=== PATIENT | female | born 1975 ===

== ENCOUNTER 2020-08-19 06:00 | Day surgery (SDC) | payer OTHER ==
[2020-08-19] MEDS ORDERED: COLACE100 MG ×2 (11:18→11:19)
[2020-08-19] MEDS ORDERED: PAXIL (11:19)
[2020-08-19] MEDS ORDERED: PEPCID AC20 MG (11:19)
[2020-08-19] MEDS ORDERED: ACETAMINOPHEN650 M4 (11:19)
== END 2020-08-19 10:45 | disposition home or self-care (01) ==
LOC: AMB-ENDOS 06:00
PROVIDERS: ATTEND Surgery
DX: D12.0 Benign neoplasm of cecum (principal); Z12.11 Encounter for screening for malignant neoplasm of colon; K64.8 Other hemorrhoids

== ENCOUNTER 2020-08-23 05:36 | Day surgery (SDC) | payer OTHER ==
[~2020-08-23 05:36] MED LIST: ACETAMINOPHEN650 M4; COLACE100 MG; PAXIL; PEPCID AC20 MG
== END 2020-08-23 11:50 | disposition home or self-care (01) ==
LOC: CIR.AMB 05:36
PROVIDERS: ATTEND Surgery
DX: C56.2 Malignant neoplasm of left ovary (principal); C56.1 Malignant neoplasm of right ovary; Z20.828 Contact with and (suspected) exposure to other viral communicable diseases
CPT/HCPCS: 36561; C1751

== ENCOUNTER 2020-12-20 12:45 | Inpatient (IN) | payer OTHER ==
[~2020-12-20] VITALS: Ht 177.8 cm; Wt 76.2 kg
[2020-12-20] MEDS ORDERED: ACETAMINOPHEN650 M2 PO (16:52)
[2020-12-23] MEDS ORDERED: DIPHENHYDR50 MG/1 M1 (08:26)
[2020-12-23] MEDS ORDERED: CARBOPLATI10 MG/1 ML (08:26)
[2020-12-23] MEDS ORDERED: DEXAMETHASO4 MG/1 M1 (08:26)
[2020-12-23] MEDS ORDERED: PACLITAXEL6 MG/1 ML (08:27)
[2020-12-23] MEDS ORDERED: ONDANSETRON4 MG/2 M5 (08:27)
[2020-12-23] MEDS ORDERED: PAROXETINE HC12.5 MG (08:27)
== END 2020-12-25 14:23 | disposition home or self-care (01) | DRG 738 ==
LOC: OB/GYN 12-22 06:37 → O/R 12-22 06:37 → SURH 12-22 10:45 → OB/GYN 12-23 01:06
PROVIDERS: ADMIT Specialist; ATTEND Specialist
PROC: 0UT20ZZ Resection of Bilateral Ovaries, Open Approach (ICD-10-PCS; 2020-12-22)
PROC: 0UT70ZZ Resection of Bilateral Fallopian Tubes, Open Approach (ICD-10-PCS; 2020-12-22)
PROC: 07BC0ZX Excision of Pelvis Lymphatic, Open Approach, Diagnostic (ICD-10-PCS; 2020-12-22)
PROC: 0UT90ZL Resection of Uterus, Supracervical, Open Approach (ICD-10-PCS; principal; 2020-12-22 10:45)
DX: C56.1 Malignant neoplasm of right ovary (principal)

== ENCOUNTER 2021-01-14 01:17 | Emergency (ER) | payer OTHER ==
[~2021-01-14] VITALS: Ht 172.7 cm; Wt 52.2 kg
[~2021-01-14 01:17] MED LIST changes: +ACETAMINOPHEN650 M2 PO; +CARBOPLATI10 MG/1 ML; +DEXAMETHASO4 MG/1 M1; +DIPHENHYDR50 MG/1 M1; +ONDANSETRON4 MG/2 M5; +PACLITAXEL6 MG/1 ML; +PAROXETINE HC12.5 MG
== END 2021-01-14 20:01 | disposition home or self-care (01) ==
LOC: ER 01:17
DX: E86.0 Dehydration (principal); R10.31 Right lower quadrant pain; C56.1 Malignant neoplasm of right ovary; R11.2 Nausea with vomiting, unspecified

== ENCOUNTER 2021-01-28 22:38 | Emergency (ER) | payer OTHER ==
[~2021-01-28] VITALS: Ht 177.8 cm; Wt 64.9 kg
[2021-01-28] MEDS ORDERED: ATIVAN0.5 M1 (22:42)
== END 2021-01-29 12:07 | disposition home or self-care (01) ==
LOC: ER 22:38
DX: R11.2 Nausea with vomiting, unspecified (principal); K56.7 Ileus, unspecified; R10.13 Epigastric pain; E86.0 Dehydration

== ENCOUNTER 2021-03-09 16:48 | Inpatient (IN) | payer OTHER ==
[~2021-03-09 16:48] MED LIST changes: +ATIVAN0.5 M1
[2021-03-10] MEDS ORDERED: DEXAMETHASO4 MG/1 M1 (08:06)
[2021-04-14] MEDS ORDERED: MS CONTIN15 M1 PO (13:24)
[2021-04-14] MEDS ORDERED: DURAGESIC1 EAC3 TOP (13:26)
[2021-04-14] MEDS ORDERED: DURAGESIC1 EAC1 TOP (13:27)
[2021-04-14] MEDS ORDERED: PROTONIX40 MG PO (13:28)
[2021-04-14] MEDS ORDERED: CARAFATE1 GM PO (13:28)
[2021-04-14] MEDS ORDERED: ONDANSETRON ODT8 MG PO (13:29)
[2021-04-14] MEDS ORDERED: GABAPENTIN300 MG PO (13:35)
[2021-04-14] MEDS ORDERED: CYMBALTA30 MG PO (13:35)
== END 2021-04-14 18:25 | disposition home health service (06) | DRG 330 ==
LOC: SURH 16:48 → SURG 03-15 13:52
PROVIDERS: ADMIT Surgery; ATTEND Surgery
PROC: 02HV33Z Insertion of Infusion Device into Superior Vena Cava, Percutaneous Approach (ICD-10-PCS; 2021-03-10)
PROC: 3E0F7SF Introduction of Other Gas into Respiratory Tract, Via Natural or Artificial Opening (ICD-10-PCS; 2021-03-10)
PROC: 0DBB0ZZ Excision of Ileum, Open Approach (ICD-10-PCS; 2021-03-14)
PROC: 0D1B0Z4 Bypass Ileum to Cutaneous, Open Approach (ICD-10-PCS; principal; 2021-03-14 16:30)
PROC: 8E0ZXY6 Isolation (ICD-10-PCS; 2021-03-23)
PROC: 0DB78ZX Excision of Stomach, Pylorus, Via Natural or Artificial Opening Endoscopic, Diagnostic (ICD-10-PCS; 2021-04-01)
DX: C78.6 Secondary malignant neoplasm of retroperitoneum and peritoneum (principal); K56.690 Other partial intestinal obstruction; C56.1 Malignant neoplasm of right ovary; F32.1 Major depressive disorder, single episode, moderate; R18.8 Other ascites; T81.41XA Infection following a procedure, superficial incisional surgical site, initial encounter; N39.0 Urinary tract infection, site not specified; Z16.12 Extended spectrum beta lactamase (ESBL) resistance; Z68.1 Body mass index [BMI] 19.9 or less, adult; E87.1 Hypo-osmolality and hyponatremia; C78.4 Secondary malignant neoplasm of small intestine; E44.0 Moderate protein-calorie malnutrition; E86.0 Dehydration; Z20.822 Contact with and (suspected) exposure to COVID-19; F41.1 Generalized anxiety disorder; B96.29 Other Escherichia coli [E. coli] as the cause of diseases classified elsewhere; F41.0 Panic disorder [episodic paroxysmal anxiety]; D63.0 Anemia in neoplastic disease; F43.21 Adjustment disorder with depressed mood

== ENCOUNTER 2021-04-28 15:42 | Inpatient (IN) | payer OTHER ==
[~2021-04-28] VITALS: Ht 177.8 cm; Wt 58.1 kg
[~2021-04-28 15:42] MED LIST changes: +CARAFATE1 GM PO; +CYMBALTA30 MG PO; +DURAGESIC1 EAC1 TOP; +DURAGESIC1 EAC3 TOP; +GABAPENTIN300 MG PO; +MS CONTIN15 M1 PO; +ONDANSETRON ODT8 MG PO; +PROTONIX40 MG PO
[2021-05-13] MEDS ORDERED: GABAPENTIN300 MG PO (17:05)
[2021-05-13] MEDS ORDERED: DURAGESIC1 EAC3 TOP (17:05)
[2021-05-13] MEDS ORDERED: PROTONIX40 MG PO (17:05)
[2021-05-13] MEDS ORDERED: FAMOTIDINE20 MG PO (17:05)
[2021-05-13] MEDS ORDERED: LOPRESSOR25 MG PO (17:05)
[2021-05-13] MEDS ORDERED: CLONAZEPAM0.5 MG PO (17:05)
[2021-05-13] MEDS ORDERED: METOCLOPRAMIDE10 MG PO (17:05)
[2021-05-13] MEDS ORDERED: DURAGESIC1 EAC1 TOP (17:05)
[2021-05-13] MEDS ORDERED: CYMBALTA30 MG PO (17:05)
[2021-05-13] MEDS ORDERED: PROMETHEGAN25 MG RECTAL (17:05)
[2021-05-13] MEDS ORDERED: ONDANSETRON ODT8 MG PO (17:05)
== END 2021-05-13 20:32 | disposition home health service (06) | DRG 683 ==
LOC: SURH 15:42 → SEC-K 15:42 → SURH 17:59
PROVIDERS: Urology; ADMIT Internal Medicine Hematology & Oncology; ATTEND Internal Medicine Hematology & Oncology
PROC: BT14ZZZ Fluoroscopy of Kidneys, Ureters and Bladder (ICD-10-PCS; 2021-05-02)
PROC: 0TJB8ZZ Inspection of Bladder, Via Natural or Artificial Opening Endoscopic (ICD-10-PCS; principal; 2021-05-02 11:00)
PROC: 0T9830Z Drainage of Bilateral Ureters with Drainage Device, Percutaneous Approach (ICD-10-PCS; 2021-05-03)
DX: N17.8 Other acute kidney failure (principal); C56.1 Malignant neoplasm of right ovary; C78.6 Secondary malignant neoplasm of retroperitoneum and peritoneum; E86.0 Dehydration; N13.6 Pyonephrosis; B96.29 Other Escherichia coli [E. coli] as the cause of diseases classified elsewhere; F43.20 Adjustment disorder, unspecified; E87.5 Hyperkalemia

== ENCOUNTER 2021-05-17 13:03 | Emergency (ER) | payer OTHER ==
[~2021-05-17] VITALS: Ht 157.5 cm; Wt 43.1 kg
[~2021-05-17 13:03] MED LIST changes: +CLONAZEPAM0.5 MG PO; +FAMOTIDINE20 MG PO; +LOPRESSOR25 MG PO; +METOCLOPRAMIDE10 MG PO; +PROMETHEGAN25 MG RECTAL
[2021-05-17] MEDS ORDERED: ZOFRAN8 MG PO (13:40)
== END 2021-05-17 20:56 | disposition home or self-care (01) ==
LOC: ER 13:03
DX: N99.522 Malfunction of incontinent external stoma of urinary tract (principal); E87.6 Hypokalemia; R18.8 Other ascites; R53.1 Weakness; R11.2 Nausea with vomiting, unspecified; R53.81 Other malaise; Z03.818 Encounter for observation for suspected exposure to other biological agents ruled out